=== PATIENT | female | born 1960 | race Caucasian/White ===

== ENCOUNTER 2019-05-11 12:12 | Emergency (ER) | payer OTHER ==
[~2019-05-11] VITALS: Ht 154.9 cm; Wt 69.5 kg
[~2019-05-11 12:12] MED LIST: FISH100049 PO; PROG1CRE EXT; REISHI MUSHROOM PO; VITA10006 PO; VITA500046 PO
[2019-05-11 15:21] LABS: BASO % 0.6 % (0.0-1.0); EOS # 0.1 10^3/uL (0.0-0.50); EOS % 1.3 % (0.0-3.0); HEMATOCRIT 43.2 % (36.0-47.0); LYMPH # 1.3 10^3/uL (1.5-4.5); LYMPH % 24.4 % (24.0-44.0); MEAN CORPUSCULAR HEMOGLOBIN 31.4 pg (27.0-33.0); MEAN CORPUSCULAR HGB CONC 34.7 g/dl (32.0-36.5); MEAN CORPUSCULAR VOLUME 90.6 fl (80.0-96.0); MONO # 0.4 10^3/uL (0.0-0.8); MONO % 6.5 % (0.0-5.0); NEUTROPHILS # 3.6 10^3/uL (1.8-7.7); NEUTROPHILS % 66.8 % (36.0-66.0); PLATELET COUNT, AUTOMATED 266 10^3/uL (150-450); RED BLOOD COUNT 4.77 10^6/uL (4.00-5.40); WHITE BLOOD COUNT 5.4 10^3/uL (4.0-10.0)
[2019-05-11 15:42] LABS: BLOOD UREA NITROGEN 17 MG/DL (7-18); CALCIUM LEVEL 9.1 MG/DL (8.8-10.2); CARBON DIOXIDE LEVEL 27 MEQ/L (21-32); CHLORIDE LEVEL 106 MEQ/L (98-107); CREATININE FOR GFR 0.62 MG/DL (0.55-1.30); GLOMERULAR FILTRATION RATE > 60.0 (>45); GLUCOSE, FASTING 80 MG/DL (70-100); POTASSIUM SERUM 3.7 MEQ/L (3.5-5.1); SODIUM LEVEL 142 MEQ/L (136-145)
--- NOTE | 2019-05-11 16:07 | REP ---
CT ABDOMEN AND PELVIS WITHOUT CONTRAST: CT abdomen and pelvis was performed without oral or IV contrast. Sagittal and coronal reconstruction images are performed. Visualized lung bases are clear. The liver, spleen, adrenals, pancreas and kidneys are grossly unremarkable. There is no renal or ureteral calculus identified and no evidence of hydroureteronephrosis. There is mild atherosclerotic calcification of the abdominal aorta without aneurysm. There is no adenopathy. I see no free air or free fluid. The appendix is normal. Scattered colonic diverticula are present without definite evidence of diverticulitis. A left hip prosthesis is noted causing adjacent streak artifact limiting evaluation of inferior pelvic structures. No gross bladder abnormality is seen. IMPRESSION: Scattered colonic diverticula with no definite diverticulitis. No evidence of appendicitis. No evidence of renal or ureteral calculus and no hydroureteronephrosis. Electronically Signed by Da Pavon MD 05/12/2019 11:32 P
[2019-05-11 16:22] VITALS: BP 134/70
== END 2019-05-11 16:24 | disposition home or self-care (01) ==
LOC: M ED 12:12
DX: R10.9 Unspecified abdominal pain (principal); M54.9 Dorsalgia, unspecified; K57.90 Diverticulosis of intestine, part unspecified, without perforation or abscess without bleeding; Z79.890 Hormone replacement therapy; Z88.0 Allergy status to penicillin; Z88.5 Allergy status to narcotic agent

== ENCOUNTER → 2020-01-04 | Outpatient (CLI) | payer OTHER, SELFPAY | LOC: M LABSMTC 13:17 → EEVIPCON 13:17 | PROVIDERS: ATTEND Family Medicine | DX: Z11.59 Encounter for screening for other viral diseases (principal); Z20.828 Contact with and (suspected) exposure to other viral communicable diseases ==

== ENCOUNTER → 2023-12-05 | Outpatient (REF) | payer MEDICARE, OTHER | LOC: M SFHCWAGY 13:46 | PROVIDERS: ATTEND Nurse Practitioner Family | DX: Z12.4 Encounter for screening for malignant neoplasm of cervix (principal) | CPT/HCPCS: 87624; G0123 ==

== ENCOUNTER → 2023-12-05 | Outpatient (CLI) | payer MEDICARE, OTHER | LOC: M WHC 08:45 | PROVIDERS: ATTEND Nurse Practitioner Family | DX: Z12.31 Encounter for screening mammogram for malignant neoplasm of breast (principal); R92.323 Mammographic fibroglandular density, bilateral breasts; R92.8 Other abnormal and inconclusive findings on diagnostic imaging of breast ==

== ENCOUNTER → 2023-12-05 | Outpatient (CLI) | payer MEDICARE, OTHER | LOC: M WHC 08:46 | PROVIDERS: ATTEND Nurse Practitioner Family | DX: M85.821 Other specified disorders of bone density and structure, right upper arm (principal); Z13.820 Encounter for screening for osteoporosis ==

== ENCOUNTER → 2023-12-17 | Outpatient (CLI) | payer MEDICARE, OTHER | LOC: M WHC 07:33 | PROVIDERS: ATTEND Nurse Practitioner Family | DX: N95.0 Postmenopausal bleeding (principal) ==

== ENCOUNTER → 2023-12-24 | Outpatient (CLI) | payer MEDICARE | LOC: M WHC 07:57 | PROVIDERS: ATTEND Nurse Practitioner Family | DX: R92.8 Other abnormal and inconclusive findings on diagnostic imaging of breast (principal) ==

== ENCOUNTER → 2024-03-17 | Outpatient (CLI) | payer MEDICARE ==
[~2024-03-17] MED LIST changes: +ESTR1CRE VA
== END ==
LOC: M EKG 11:43
PROVIDERS: ATTEND Anesthesiology
DX: Z01.818 Encounter for other preprocedural examination (principal)

== ENCOUNTER 2024-03-24 08:43 | Day surgery (SDC) | payer MEDICARE ==
[~2024-03-24] VITALS: Ht 154.9 cm; Wt 60.7 kg
[2024-03-24 09:23] LABS: HEMATOCRIT 45.2 % (36.0-47.0); HEMOGLOBIN 15.1 g/dl (12.0-15.5); MEAN CORPUSCULAR HEMOGLOBIN 31.1 pg (27.0-33.0); MEAN CORPUSCULAR HGB CONC 33.4 g/dl (32.0-36.5); PLATELET COUNT, AUTOMATED 225 10^3/uL (150-450); RED BLOOD COUNT 4.86 10^6/uL (4.00-5.40); WHITE BLOOD COUNT 4.3 10^3/uL (4.0-10.0)
[2024-03-24] MEDS ORDERED: propofoL 200 MG/20 ML VIAL As Ordered ONE (09:28)
[2024-03-24] MEDS ORDERED: ONDANSETRON 4MG 2ML VIAL As Ordered ONE (09:28)
[2024-03-24] MEDS ORDERED: LIDOCAINE 2% 100MG/5ML SDV (FOR ANES.) As Ordered ONE (09:34)
[2024-03-24] MEDS: SILVER NITRATE APPLICATOR (1 = QTY 10) As Ordered ONE (10:01)
[2024-03-24] MEDS ORDERED: fentaNYL 100 MCG/2 ML INJECTION As Ordered ONE (10:04)
[2024-03-24] MEDS ORDERED: MIDAZOLAM INJ 2MG/2ML VIAL As Ordered ONE (10:04)
[2024-03-24] MEDS ORDERED: ACETAMINOPHEN 1000MG 100ML IV BAG As Ordered ONE (10:27)
[2024-03-24 11:10] VITALS: BP 162/81; TEMP 96.5; O2SAT 100
== END 2024-03-24 11:59 | disposition home or self-care (01) ==
LOC: M SDC 08:43
PROVIDERS: ATTEND Obstetrics & Gynecology
DX: N95.0 Postmenopausal bleeding (principal); Z88.0 Allergy status to penicillin; Z88.5 Allergy status to narcotic agent
CPT/HCPCS: 36415; 58558; 85027; 86850; 86900; 86901; 88305; J0131; J0665; J1100; J2250; J2405; J3010

== ENCOUNTER → 2024-07-09 | Outpatient (CLI) | payer MEDICARE | LOC: M WHC 09:58 | PROVIDERS: ATTEND Nurse Practitioner Family | DX: R92.2 Inconclusive mammogram (principal) ==

== ENCOUNTER → 2024-12-10 | Outpatient (CLI) | payer MEDICARE ==
[~2024-12-10] MED LIST changes: +ELIQ5TAB; +ISOVUE-370 76% 100ML VIAL As Ordered ONE
== END ==
LOC: M RAD 08:05
PROVIDERS: ATTEND Internal Medicine Medical Oncology
DX: Z86.711 Personal history of pulmonary embolism (principal)
CPT/HCPCS: 71275; 74177; Q9967

== ENCOUNTER → 2024-12-18 | Outpatient (CLI) | payer MEDICARE ==
[~2024-12-18] MED LIST changes: -ISOVUE-370 76% 100ML VIAL As Ordered ONE
== END ==
LOC: M RAD 12:37
PROVIDERS: ATTEND Specialist
DX: I26.99 Other pulmonary embolism without acute cor pulmonale (principal)